=== PATIENT | female | born 1995 | race Caucasian/White ===

== ENCOUNTER 2016-05-25 16:53 | Outpatient (CLI) | payer SELFPAY ==
[2016-05-25] MEDS ORDERED: NORMAL SALINE 10 ML SYRINGE FLUSH IVP PRN (16:56)
[2016-05-25] MEDS ORDERED: Lactated Ringers-OB Dept 1,000 ML ONE (17:16)
[2016-05-25] MEDS: Lactated Ringers 1,000 ML PRIMARY IV ONE (17:20)
[2016-05-25 17:36] VITALS: RESP 18; TEMP 97.9
[2016-05-25 18:13] LABS: HEMATOCRIT 33.9 % (37.0-47.0); HEMOGLOBIN 10.8 g/dL (12.0-16.0); MEAN CORPUSCULAR HGB CONC 31.9 g/dL (33-37); MEAN CORPUSCULAR VOLUME 91.1 FL (81-99); MEAN PLATELET VOLUME 11.4 FL (7.4-12.2); RED BLOOD COUNT 3.72 10^6/uL (4.20-5.40)
[2016-05-25 18:38] LABS: OPIATE SCREEN,URINE NEGATIVE (NEG); TRICYCLIC ANTIDEPRESSANT,URINE NEGATIVE (NEG); URINE SAMPLE TYPE CLEAN CATCH URINE; URINE SPECIFIC GRAVITY - MAN 1.025
[2016-05-25 18:39] LABS: AMPHETAMINE SCREEN NEGATIVE (NEG); CANNABINOID SCREEN,URINE POSITIVE (NEG); COCAINE SCREEN NEGATIVE (NEG); METHADONE URINE SCREEN NEGATIVE (NEG); METHAMPHETAMINES SCREEN,URINE NEGATIVE (NEG)
--- NOTE | 2016-06-02 11:22 | PDOC(PROG) ---
Intake - - Reason for Visit/Chief Complaint: Contractions Admitted From: Home - Estimated Due Date: 06/21/16 Gestational Age in Weeks and Days: 37 Weeks and 2 Days : 2 Para: 1 Term Births: 1 Maternal - Vital Signs Last Taken Vital Signs: Vital Signs - Last Taken Temperature 97.9 F 05/25/16 17:32 Pulse Rate 71 05/25/16 17:32 Respiratory Rate 18 05/25/16 17:32 Blood Pressure 128/93 05/25/16 17:32 Pulse Ox 99 05/25/16 17:32 - Uterine Activity Uterine Contraction Monitor Mode: External Uterine Contraction Pattern: Absent Uterine Tone Measurement Phase: Resting - Cervical Exam Cervical Dilation (cm): 1-2 Station: -3 Exam Performed By: Kelly Wagoner RN - Vaginal Discharge Vaginal Bleeding Amount: None Vaginal Discharge Amount: None Monitoring - Uterine Activity Uterine Contraction Monitor Mode: External Uterine Contraction Pattern: Absent Uterine Tone Measurement Phase: Resting Results - Labs CBC and BMP: 05/25/16 17:30 Assessment and Plan - Assessment / Plan Additional Assessment/Plan Details: No progression into active labor. Reassuring maternal and evaluation. Discharge to home in good condition. - Time Time Spent With Patient: Less Than 15 Minutes
== END 2016-05-25 18:55 | disposition home or self-care (01) ==
LOC: OBOP 16:53
PROVIDERS: ATTEND Obstetrics & Gynecology
DX: O60.03 Preterm labor without delivery, third trimester (principal); Z3A.36 36 weeks gestation of pregnancy
CPT/HCPCS: 59025; 80305; 82542; 85027; 86850; 86900; 86901; 99211; J7120